=== PATIENT | female | born 1995 | race Two or more races ===

== ENCOUNTER 2024-06-30 08:50 | Day surgery (SDC) | payer MEDICAID, SELFPAY ==
[2024-06-28 09:19] VITALS: BMI 26.2
[2024-06-28 10:11] LABS: Basophils % (Auto) 0 % (0-2.5); Eosinophils # (Auto) 0.1 Thou/mm3 (0.0-0.5); Eosinophils % (Auto) 1 % (0-10); Hematocrit 39.7 % (36.0-46.0); Hemoglobin 13.3 g/dL (12.0-16.0); Immature Granulocytes % (Auto) 0 % (0-0); Immature Granulocytes Auto 0.03 Thou/mm3 (0.00-0.00); Lymphocytes # (Auto) 2.4 Thou/mm3 (1.0-4.8); Lymphocytes % (Auto) 30 % (10-50); Mean Corpuscular HGB Conc 33.5 g/dl (31.0-37.0); Mean Corpuscular Hemoglobin 30.1 pg (25.0-35.0); Mean Corpuscular Volume 90 fL (80-100); Monocytes # (Auto) 0.6 Thou/mm3 (0.0-0.8); Monocytes % (Auto) 8 % (0-12); Neutrophils # (Auto) 4.7 Thou/mm3 (1.8-7.7); Neutrophils % (Auto) 60 % (37-80); Nucleated Red Blood Cell % 0 /100 WBC (0); Platelet Count 243 Thou/mm3 (140-440); RDW Standard Deviation 41.6 fL (36.4-46.3); Red Blood Count 4.42 Miln/mm3 (4.00-5.20); White Blood Count 7.9 Thou/mm3 (3.6-11.0)
[2024-06-28 10:25] LABS: HCG,Qualitative Serum Negative
[2024-06-28 10:29] LABS: Alanine Aminotransferase 8 U/L (10-49); Albumin, Serum 4.4 gm/dL (3.5-5.0); Albumin/Globulin Ratio 1.6 (1.2-2.2); Alkaline Phosphatase 78 U/L (46-116); Anion Gap 6 (7-16); Aspartate Amino Transferase 13 U/L (0-34); BUN/Creatinine Ratio 17 Ratio (12-20); Bilirubin,Total 0.3 mg/dL (0.3-1.2); Blood Urea Nitrogen 12 mg/dL (9-23); Calcium 9.9 mg/dL (8.3-10.6); Calcium (Corrected) 9.9 mg/dL (8.5-10.1); Chloride 109 mMol/L (98-107); Creatinine (Component) 0.7 mg/dL (0.6-1.3); Globulin 2.7 gm/dL (2.3-3.5); Glucose 92 mg/dL (74-106); Osmolality,Calculated 277 (275-295); Potassium 3.6 mMol/L (3.4-5.1); Sodium 139 mMol/L (136-145); Total Protein 7.1 gm/dL (5.7-8.2); eGFR > 60 See Note
[2024-06-30] VITALS (8 sets, daily range): BP systolic 101–122; BP diastolic 49–76; PULSE 77–88; RESP 12–21; TEMP 36.3–36.8; O2SAT 95–100; BMI 25.7
[2024-06-30] MEDS: RINGERS LACTATED 1000 ML 1,000 ML 20 ML IV (09:39)
--- NOTE | 2024-06-30 11:22 | PD.GYNPROC ---
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 Identity was confirmed by double identifiers and she was placed on the operating table.? General anesthesia was administered and airway was secured.? Patient was now positioned in the dorsal lithotomy position in [facility].? The abdomen and perineum were prepped in the usual sterile fashion and sterile drapes were applied.? The bladder was emptied using a straight catheter.? A sponge stick was placed in the vagina for uterine manipulation.? Attention was now turned to the patient's abdomen.? A 5 mm incision was made at the base of the umbilicus using a scalpel.? Laparoscopic entry was accomplished under direct visualization using [employer] laparoscopic trocar.? Once intra-abdominal placement was confirmed pneumoperitoneum was insufflated to 15 cm.? The camera was now introduced into the abdomen and a preliminary survey was performed.? The uterus and both adnexa were noted to be within normal limits.? Another overall survey of the upper abdomen was performed and no gross abnormalities were noted.? 1 accessory port was placed at the suprapubic location. A detailed and systematic survey was performed starting from the pelvis. The uterus appeared normal in shape, the right fallopian tube and adnexa appeared to be within normal anatomic limits the same was true of the left adnexa and ovary. The left ovary had a follicle. The bladder peritoneum appeared free of any endometriosis or any other abnormalities, the cul-de-sac was also noted to be free of any endometriosis or any other abnormalities. Survey of the paracolic gutters, intestinal surfaces, hepatic surface of the diaphragm, liver, all were within normal limits. All instruments were now withdrawn.? Pneumoperitoneum was desufflated.? The laparoscopic ports were removed.? The skin was now closed using 4-0 Monocryl in a subcuticular fashion.? The patient's skin was now cleaned, sterile dressings were applied.? Patient was undraped, and general anesthesia was reversed and she was transferred to the recovery room in a stable and awake condition. The patient tolerated the entire procedure well.? All instrument, sponge and lap counts are correct x2.? No complications were encountered. Estimated blood loss (ml): 5 Findings: No definite evidence of endometriosis Complications: none Surgical staff Operation Date: 06/30/24 11:00 <No data on this case meets the specified criteria> Diagnosis Discharge Diagnosis (1) Endometriosis determined by laparoscopy: Status: Acute Problem List Completed Was Problem List Reviewed/Reconciled?: Yes
--- NOTE | 2024-06-30 11:54 | SUR.PHASEI ---
Pt arrived to PACU via gurney with oral airway present, breathing unlabored, dressing to abdomen clean, dry, and intact, report from Swapna RN, and Madeline ALCANTAR
[2024-06-30] MEDS: fentaNYL CIT INJ 50 mCg/ML AMP 2ML IV ×2 (12:15→12:32)
--- NOTE | 2024-06-30 13:06 | SUR.PHASEII ---
Pt awake, alert, able to follow commands, breathing unlabored, dressing to abdomen clean, dry, and intact, VS stable, discharge instructions given with spouse present-all questions answered, pt able to dress self and ambulate to wheelchair with steady gait, pt discharged via wheelchair with all belongings and copies of discharge paperwork.
== END 2024-06-30 13:06 | disposition home or self-care (01) ==
PROVIDERS: PCP Family Medicine; Referring Provider Obstetrics & Gynecology; Visit Provider Obstetrics & Gynecology
PROC: (CPT 49320; principal; 2024-06-30 10:45)
DX: G89.29 Other chronic pain (principal); R10.2 Pelvic and perineal pain
CPT/HCPCS: 49320; 36415; 80053; 84703; 85025; 86850; 86900; 86901; A4649; J0131; J1100; J1885; J2250; J2371; J2405; J2704; J3010; J3490; J7120